=== PATIENT | female | born 1995 | race Two or more races ===

== ENCOUNTER 2019-05-15 05:26 | Inpatient (IN) | payer SELFPAY ==
[~2019-05-15] VITALS: Ht 157.5 cm; Wt 68.0 kg
[~2019-05-15 05:26] MED LIST: OXYTOCIN PREMIX 30 UNIT/500 ML NS BAG. IV ONE
[2019-05-15 05:45] VITALS: BP 123/79
[2019-05-15] MEDS ORDERED: ONDANSETRON PF 4 MG/2 ML VIAL. IV PRN ×2 (06:00→07:15)
[2019-05-15] MEDS ORDERED: IV RINGERS,LACTATED 1000ML 1,000 ML IV SCH ×3 (06:00→14:23)
[2019-05-15] MEDS ORDERED: ACETAMINOPHEN 325 MG TABLET. PO PRN ×2 (06:00→16:30)
[2019-05-15 06:06] LABS: BILIRUBIN,URINE NEGATIVE (NEG); CLARITY,URINE CLEAR; COLOR,URINE YELLOW; NITRITE,URINE NEGATIVE (NEG); PROTEIN,URINE NEGATIVE (NEG-TRACE)
[2019-05-15 06:15] LABS: SQUAMOUS EPITHELIAL CELL,UR MOD /LPF
[2019-05-15 06:16] LABS: BACTERIA,URINE FEW /HPF (0-FEW)
[2019-05-15] MEDS ORDERED: TERBUTALINE 1 MG/ML VIAL. SQ PRN (07:15)
[2019-05-15] MEDS ORDERED: BUTORPHANOL 2 MG/ML VIAL. IV PRN ×2 (07:15)
[2019-05-15] MEDS ORDERED: OXYTOCIN 30 UNIT/500 ML PREMIX 500 ML IV PRN ×2 (07:15→16:30)
[2019-05-15] MEDS ORDERED: 0.9 % SODIUM CHLORIDE 10 ML DISP.SYRIN. IV PRN ×2 (07:15→16:30)
[2019-05-15] MEDS ORDERED: MAG HYDROX/ALUMINUM HYD/SIMETH 30 ML ORAL.SUSP PO PRN ×2 (07:15→16:30)
[2019-05-15] MEDS ORDERED: DOCUSATE SODIUM 283 MG/5 ML ENEMA. PR PRN (07:15)
[2019-05-15] MEDS ORDERED: LIDOCAINE 1% PF 30 ML VIAL. INJ PRN (07:15)
[2019-05-15] MEDS ORDERED: NALBUPHINE 10 MG/ML AMPUL. IV PRN ×3 (07:15→14:30)
[2019-05-15] MEDS ORDERED: fentaNYL PF VIAL 100 MCG/2 ML VIAL IV PRN ×2 (07:15)
[2019-05-15 08:05] LABS: BASO % 0 % (0-3); EOS # 0.1 x10^3/uL (0.0-0.7); EOS % 1 % (0-3); HEMATOCRIT 35.8 % (36.0-47.0); LYMPH # 1.9 x10^3/uL (1.0-4.8); LYMPH % 16 % (24-48); MEAN CORPUSCULAR HEMOGLOBIN 29 pg (25-35); MEAN CORPUSCULAR HGB CONC 34 g/dL (31-37); MEAN CORPUSCULAR VOLUME 86 fL (79-100); MONO # 0.8 x10^3/uL (0.0-1.1); MONO % 7 % (0-9); NEUT # 9.6 x10^3/uL (1.8-7.7); NEUT % 77 % (31-73); PLATELET COUNT 258 x10^3/uL (140-400); RED BLOOD COUNT 4.18 x10^6/uL (3.50-5.40); RED CELL DISTRIBUTION WIDTH 14.4 % (11.5-14.5); WHITE BLOOD COUNT 12.5 x10^3/uL (4.0-11.0)
--- NOTE | 2019-05-15 08:12 | PDOC1 ---
OB - History Hx of Present Care: Good Care Ultrasounds: Normal mid trimester US Obstetrical Complications: None Medical Complications: None Past Family/Social History * Past Medical, Surgical, Family and Obstetric Histories reviewed from chart. Rubella: Immune RPR/VDRL: Negative GBS Status: Negative HBsAG: Negative OB - Chief Complaint & HPI Date of Admission: Date of Admission: May 15, 2019 at 07:35 Chief Complaint/History : 3 Para: 2 EGA: 39 Reason for admission: active labor Admission Nurse Assessment Rev: Yes OB - Admission Exam Physical Exam HEENT: Normal Heart: Regular Rate Lungs: Clear Abdomen: Gravid, Non tender, Soft Extremities: Edema Reflexes: Normal Cervical Dilatation: 3cm Effacement: 75% Station: -3 Membranes: Intact Accelerations: Accelerations Present Decelerations: No decelerations Contractions on Admission: < 5 Minutes Apart Intensity: Moderate Text A: 39 wks IUP Active labor P; Admit for labor management. AUSTEN BRYAN Jr, MD May 15, 2019 08:12
[2019-05-15] MEDS ORDERED: BUPIVACAINE MPF 0.25% 30 ML VIAL. ONE (14:20)
[2019-05-15] MEDS ORDERED: L&D EPIDURAL SYRINGE 50 ML ONE (14:20)
[2019-05-15] MEDS ORDERED: fentaNYL PF VIAL 100 MCG/2 ML VIAL EPID PRN (14:30)
[2019-05-15] MEDS ORDERED: PHENYLEPHRINE in 0.9% NACL PF 1 MG/10 ML SYRINGE. IV PRN (14:30)
[2019-05-15] MEDS ORDERED: ATROPINE 0.5 MG/5 ML DISP.SYRINGE. IV PRN (14:30)
[2019-05-15] MEDS ORDERED: NALOXONE 0.4 MG/ML VIAL. IV PRN (14:30)
[2019-05-15] MEDS ORDERED: IV RINGERS,LACTATED 500ML 500 ML IV PRN (14:30)
[2019-05-15] MEDS ORDERED: PROCHLORPERAZINE 10 MG/2 ML VIAL. IV PRN (14:30)
[2019-05-15] MEDS ORDERED: diphenhydrAMINE 50 MG/ML VIAL IV PRN (14:30)
[2019-05-15] MEDS ORDERED: BUPIVACAINE MPF 0.25% 30 ML VIAL. EPID PRN (14:30)
[2019-05-15] MEDS ORDERED: L&D EPIDURAL SYRINGE 50 ML EPID PRN (14:30)
[2019-05-15] MEDS ORDERED: ePHEDrine PF IN SALINE 50 MG/10 ML SYRINGE. IV PRN (14:30)
[2019-05-15] MEDS ORDERED: ONDANSETRON PF 4 MG/2 ML VIAL. IVP PRN (14:30)
[2019-05-15] MEDS ORDERED: ROPIVacaine 0.2% PF 10 ML VIAL. EPID PRN (14:30)
[2019-05-15] MEDS ORDERED: ONDA4TAB7 PO (14:39)
[2019-05-15] MEDS ORDERED: L&D EPIDURAL 50 ML SYRINGE. ONE (15:00)
--- NOTE | 2019-05-15 16:27 | PDOC ---
VAGINAL DELIVERY DATE DATE: 05/15/19 TIME: 16:25 : 3 Para: 3 EGA: 39 VAGINAL DELIVERY: VTX VACCUM ASSISTED: No PLACENTA: Spontaneous 8/9 SEX: Female WEIGHT Weight [ pending] Nuchal Cord: No Amniotic Fluid: Clear PAIN: Epidural EPISIOTOMY: No EXTENSION: No EBL 300 ml COMPLICATIONS none CONDITION pt. stable Signs of Intrauterine Infectio: None Shoulder Dystocia: No AUSTEN BRYAN Jr, MD May 15, 2019 16:27
[2019-05-15] MEDS ORDERED: ZOLPIDEM 5 MG TABLET. PO PRN (16:30)
[2019-05-15] MEDS ORDERED: HYDROCORTISONE 1% TOPICAL OINTMENT 30GM TUBE. TP PRN (16:30)
[2019-05-15] MEDS ORDERED: IBUPROFEN 400 MG TABLET. PO PRN (16:30)
[2019-05-15] MEDS ORDERED: PHENYLEPH/MINERAL OIL/PETROLAT RECTAL OINTMENT TUBE. RC PRN (16:30)
[2019-05-15] MEDS ORDERED: DOCUSATE SODIUM 100 MG CAPSULE. PO PRN (16:30)
[2019-05-15] MEDS ORDERED: MAGNESIUM HYDROXIDE 2,400 MG/30 ML ORAL.SUSP. PO PRN (16:30)
[2019-05-15] MEDS ORDERED: SIMETHICONE 80 MG TAB.CHEW PO PRN (16:30)
[2019-05-15] MEDS ORDERED: MMR per PROTOCOL. MC PRN (16:30)
[2019-05-15] MEDS ORDERED: diphenhydrAMINE HCL 25 MG CAPSULE PO PRN (16:30)
[2019-05-15] MEDS ORDERED: oxyCODONE/APAP 5/325 1 TAB TABLET PO PRN (16:30)
[2019-05-15] MEDS ORDERED: BENZOCAINE 20% TOPICAL AEROSOL SPRAY 57GM CAN. TP PRN (16:30)
[2019-05-15] MEDS: IBUPROFEN 400 MG TABLET. PO PRN (18:05)
[2019-05-15 20:20] VITALS: BP 126/75
[2019-05-16] VITALS: BP 115/75
[2019-05-16] MEDS: IBUPROFEN 400 MG TABLET. PO PRN ×2 (01:51→09:55)
[2019-05-16 05:22] LABS: BASO % 0 % (0-3); EOS # 0.1 x10^3/uL (0.0-0.7); EOS % 1 % (0-3); HEMATOCRIT 32.6 % (36.0-47.0); HEMOGLOBIN 10.9 g/dL (12.0-15.5); LYMPH # 2.1 x10^3/uL (1.0-4.8); LYMPH % 18 % (24-48); MEAN CORPUSCULAR HEMOGLOBIN 29 pg (25-35); MEAN CORPUSCULAR HGB CONC 34 g/dL (31-37); MEAN CORPUSCULAR VOLUME 85 fL (79-100); MONO % 9 % (0-9); NEUT # 8.2 x10^3/uL (1.8-7.7); NEUT % 72 % (31-73); PLATELET COUNT 218 x10^3/uL (140-400); RED BLOOD COUNT 3.84 x10^6/uL (3.50-5.40); RED CELL DISTRIBUTION WIDTH 14.4 % (11.5-14.5); WHITE BLOOD COUNT 11.3 x10^3/uL (4.0-11.0)
[2019-05-16] MEDS ORDERED: FERROUS SULFATE 325 MG TABLET. PO SCH (08:00)
--- NOTE | 2019-05-16 08:16 | PDOC ---
OB Progress Note Date of Service 05/16/19 Time of Evaluation 0815 Notes Pt. feeling well. No complaints. Lab Laboratory Tests Test 05/15/19 06:00 05/15/19 07:25 05/16/19 05:10 Urine Collection Type Unknown Urine Color Yellow Urine Clarity Clear Urine pH 7.0 Urine Specific [place] 1.015 Urine Protein Negative mg/dL (NEG-TRACE) Urine Glucose (UA) Negative mg/dL (NEG) Urine Ketones (Stick) 40 mg/dL (NEG) Urine Blood Small (NEG) Urine Nitrite Negative (NEG) Urine Bilirubin Negative (NEG) Urine Urobilinogen Dipstick 1.0 mg/dL (0.2 mg/dL) Urine Leukocyte Esterase Trace (NEG) Urine RBC 6-10 /HPF (0-2) Urine WBC 1-4 /HPF (0-4) Urine Squamous Epithelial Cells Mod /LPF Urine Bacteria Few /HPF (0-FEW) Urine Mucus Mod /LPF White Blood Count 12.5 x10^3/uL (4.0-11.0) 11.3 x10^3/uL (4.0-11.0) Red Blood Count 4.18 x10^6/uL (3.50-5.40) 3.84 x10^6/uL (3.50-5.40) Hemoglobin 12.0 g/dL (12.0-15.5) 10.9 g/dL (12.0-15.5) Hematocrit 35.8 % (36.0-47.0) 32.6 % (36.0-47.0) Mean Corpuscular Volume 86 fL (79-100) 85 fL (79-100) Mean Corpuscular Hemoglobin 29 pg (25-35) 29 pg (25-35) Mean Corpuscular Hemoglobin Concent 34 g/dL (31-37) 34 g/dL (31-37) Red Cell Distribution Width 14.4 % (11.5-14.5) 14.4 % (11.5-14.5) Platelet Count 258 x10^3/uL (140-400) 218 x10^3/uL (140-400) Neutrophils (%) (Auto) 77 % (31-73) 72 % (31-73) Lymphocytes (%) (Auto) 16 % (24-48) 18 % (24-48) Monocytes (%) (Auto) 7 % (0-9) 9 % (0-9) Eosinophils (%) (Auto) 1 % (0-3) 1 % (0-3) Basophils (%) (Auto) 0 % (0-3) 0 % (0-3) Neutrophils # (Auto) 9.6 x10^3/uL (1.8-7.7) 8.2 x10^3/uL (1.8-7.7) Lymphocytes # (Auto) 1.9 x10^3/uL (1.0-4.8) 2.1 x10^3/uL (1.0-4.8) Monocytes # (Auto) 0.8 x10^3/uL (0.0-1.1) 1.0 x10^3/uL (0.0-1.1) Eosinophils # (Auto) 0.1 x10^3/uL (0.0-0.7) 0.1 x10^3/uL (0.0-0.7) Basophils # (Auto) 0.0 x10^3/uL (0.0-0.2) 0.0 x10^3/uL (0.0-0.2) Treponema pallidum Antibody Nonreactive (Nonreactive) Laboratory Tests Test 05/16/19 05:10 White Blood Count 11.3 x10^3/uL (4.0-11.0) Red Blood Count 3.84 x10^6/uL (3.50-5.40) Hemoglobin 10.9 g/dL (12.0-15.5) Hematocrit 32.6 % (36.0-47.0) Mean Corpuscular Volume 85 fL (79-100) Mean Corpuscular Hemoglobin 29 pg (25-35) Mean Corpuscular Hemoglobin Concent 34 g/dL (31-37) Red Cell Distribution Width 14.4 % (11.5-14.5) Platelet Count 218 x10^3/uL (140-400) Neutrophils (%) (Auto) 72 % (31-73) Lymphocytes (%) (Auto) 18 % (24-48) Monocytes (%) (Auto) 9 % (0-9) Eosinophils (%) (Auto) 1 % (0-3) Basophils (%) (Auto) 0 % (0-3) Neutrophils # (Auto) 8.2 x10^3/uL (1.8-7.7) Lymphocytes # (Auto) 2.1 x10^3/uL (1.0-4.8) Monocytes # (Auto) 1.0 x10^3/uL (0.0-1.1) Eosinophils # (Auto) 0.1 x10^3/uL (0.0-0.7) Basophils # (Auto) 0.0 x10^3/uL (0.0-0.2) Medications Current Medications Ringer's Solution 1,000 ml @ 125 mls/hr Q8H IV Last administered on 05/15/19at 08:35; Start 05/15/19 at 06:00 Acetaminophen (Tylenol) 650 mg PRN Q6HRS PRN PO PAIN, TEMP > 100.5'F; Start 05/15/19 at 06:00; Stop 05/15/19 at 16:32; Status DC Ondansetron HCl (Zofran) 4 mg PRN Q6HRS PRN IV NAUSEA Last administered on 05/15/19at 08:35; Start 05/15/19 at 06:00 Sodium Chloride (Normal Saline Flush) 3 ml QSHIFT PRN IV AFTER MEDS AND BLOOD DRAWS; Start 05/15/19 at 07:15 Ringer's Solution 1,000 ml @ 125 mls/hr Q8H IV Last administered on 05/15/19at 14:16; Start 05/15/19 at 07:11 Nalbuphine HCl (Nubain) 5 mg PRN Q1HR PRN IV Mild to moderate labor pain; Start 05/15/19 at 07:15 Nalbuphine HCl (Nubain) 10 mg PRN Q1HR PRN IV Severe labor pain; Start 05/15/19 at 07:15 Butorphanol Tartrate (Stadol) 1 mg PRN Q1HR PRN IV mild to moderate labor pain Last administered on 05/15/19at 14:02; Start 05/15/19 at 07:15 Butorphanol Tartrate (Stadol) 2 mg PRN Q1HR PRN IV Severe labor pain; Start 05/15/19 at 07:15 Fentanyl Citrate (Fentanyl 2ml Vial) 50 mcg PRN Q30MIN PRN IV Mild to moderate pain; Start 05/15/19 at 07:15 Fentanyl Citrate (Fentanyl 2ml Vial) 100 mcg PRN Q30MIN PRN IV Severe pain; Start 05/15/19 at 07:15 Ondansetron HCl (Zofran) 4 mg PRN Q4HRS PRN IV NAUSEA/VOMITING; Start 05/15/19 at 07:15 Al Hydroxide/Mg Hydroxide (Mylanta Plus Xs) 30 ml PRN Q4HRS PRN PO HEARTBURN / GAS; Start 05/15/19 at 07:15; Stop 05/15/19 at 16:32; Status DC Terbutaline Sulfate (Brethine) 0.25 mg 1X PRN PRN SQ SEE COMMENTS; Start 05/15/19 at 07:15; Stop 05/16/19 at 07:14; Status DC Lidocaine HCl (Xylocaine 1% Pf 30ml Vial) 30 ml 1X PRN PRN INJ SEE COMMENTS; Start 05/15/19 at 07:15; Stop 05/17/19 at 07:14 Oxytocin/Sodium Chloride 500 ml @ 0 mls/hr CONT PRN PRN IV Post delivery bleeding Last administered on 05/15/19at 12:06; Start 05/15/19 at 07:15 Ibuprofen (Motrin) 800 mg PRN Q6HRS PRN PO MILD TO MODERATE PAIN Last administered on 05/16/19at 01:51; Start 05/15/19 at 07:15 Docusate Sodium (Enemeez) 283 mg PRN DAILY PRN SC CONSTIPATION; Start 05/15/19 at 07:15 Oxytocin/Sodium Chloride (Oxytocin Premix Infusion) 30 unit STK-MED ONCE IV ; Start 05/15/19 at 05:00; Stop 05/15/19 at 12:34; Status DC Bupivacaine HCl (Sensorcaine Mpf 0.25%) 30 ml STK-MED ONCE .ROUTE ; Start 05/15/19 at 14:20; Stop 05/15/19 at 14:20; Status DC Fentanyl Citrate 50 ml @ As Directed STK-MED ONCE .ROUTE ; Start 05/15/19 at 14:20; Stop 05/15/19 at 14:20; Status DC Ringer's Solution 1,000 ml @ 1,000 mls/hr Q1H IV ; Start 05/15/19 at 14:23; Stop 05/15/19 at 15:22; Status DC Ringer's Solution 500 ml @ 500 mls/hr 1X PRN PRN IV HYPOTENSION; Start 05/15/19 at 14:30; Stop 05/16/19 at 14:29 Ephedrine Sulfate (ePHEDrine PF IN SALINE SYRINGE) 10 mg PRN Q2MIN PRN IV IF SBP<90; Start 05/15/19 at 14:30 Phenylephrine HCl (PHENYLEPHRINE in 0.9% NACL PF) 0.05 mg PRN Q2MIN PRN IV SBP less than 90; Start 05/15/19 at 14:30 Atropine Sulfate (ATROPINE 0.5mg SYRINGE) 0.4 mg PRN Q2MIN PRN IV FOR SYMPTOMATIC BRADYCARDIA; Start 05/15/19 at 14:30 Naloxone HCl (Narcan) 0.04 mg PRN Q1MIN PRN IV SEE COMMENTS; Start 05/15/19 at 14:30 Fentanyl Citrate (Fentanyl 2ml Vial) 100 mcg PRN 1X PRN EPID FOR ANESTHESIA; Start 05/15/19 at 14:30; Stop 05/16/19 at 14:29 Bupivacaine HCl (Sensorcaine Mpf 0.25%) 10 ml PRN 1X PRN EPID FOR ANESTHESIA; Start 05/15/19 at 14:30; Stop 05/16/19 at 14:29 Fentanyl Citrate 50 ml @ 14 mls/hr CONT PRN EPID PAIN; Start 05/15/19 at 14:30 Ondansetron HCl (Zofran) 4 mg PRN Q6HRS PRN IVP NAUSEA/VOMITING; Start 05/15/19 at 14:30 Prochlorperazine Edisylate (Compazine) 5 mg PRN Q6HRS PRN IV NAUSEA/VOMITING; Start 05/15/19 at 14:30 Diphenhydramine HCl (Benadryl) 12.5 mg PRN Q2HR PRN IV ITCHING; Start 05/15/19 at 14:30 Nalbuphine HCl (Nubain) 2.5 mg PRN Q2HR PRN IV ITCHING; Start 05/15/19 at 14:30 Ropivacaine (Naropin 0.2%) 20 ml 1X PRN PRN EPID PER ANESTHESIA; Start 05/15/19 at 14:30 Sodium Chloride (Normal Saline Flush) 10 ml QSHIFT PRN IV AFTER MEDS AND BLOOD DRAWS; Start 05/15/19 at 16:30 Oxytocin/Sodium Chloride 500 ml @ 62.5 mls/hr CONT PRN IV SEE I/O RECORD; Start 05/15/19 at 16:30; Stop 05/16/19 at 00:29; Status DC Acetaminophen (Tylenol) 650 mg PRN Q6HRS PRN PO MILD PAIN / TEMP; Start 05/15/19 at 16:30 Ibuprofen (Motrin) 800 mg PRN Q8HRS PRN PO INFLAMMATION/PAIN PREVENTION; Start 05/15/19 at 16:30 Docusate Sodium (Colace) 100 mg PRN BID PRN PO HARD STOOLS; Start 05/15/19 at 16:30 Magnesium Hydroxide (Milk Of Magnesia) 2,400 mg PRN DAILY PRN PO CONSTIPATION; Start 05/15/19 at 16:30 Al Hydroxide/Mg Hydroxide (Mylanta Plus Xs) 30 ml PRN Q4HRS PRN PO HEARTBURN / GAS; Start 05/15/19 at 16:30 Simethicone (Gas-X) 80 mg PRN AFTMEALHC PRN PO GAS / BLOATING; Start 05/15/19 at 16:30 Diphenhydramine HCl (Benadryl) 25 mg PRN Q6HRS PRN PO ITCHING; Start 05/15/19 at 16:30 Benzocaine (Americaine) 1 spray PRN QID PRN TP TOPICAL PAIN; Start 05/15/19 at 16:30 Phenyleph/Shark Oil/Min Oil/Petrol (Preparation H) 1 zahira PRN QID PRN RC RECTAL PAIN; Start 05/15/19 at 16:30 Hydrocortisone (Cortaid) 1 zahira PRN QID PRN TP PERINEAL PAIN; Start 05/15/19 at 16:30 Ferrous Sulfate (Feosol) 325 mg BIDWMEALS PO ; Start 05/16/19 at 08:00 Zolpidem Tartrate (Ambien) 5 mg PRN QHS PRN PO INSOMNIA, MAY REPEAT X1; Start 05/15/19 at 16:30 Info (Do NOT chart on this placeholder) 1 ea 1X PRN PRN MC SEE COMMENTS; Start 05/15/19 at 16:30 Info (Do NOT chart on this placeholder) 1 ea 1X PRN PRN MC SEE COMMENTS; Start 05/15/19 at 16:30 Oxycodone/ Acetaminophen (Percocet 5/325) 2 tab PRN Q4HRS PRN PO MODERATE PAIN, SEVERE PAIN; Start 05/15/19 at 16:30 Active Scripts Active Reported Zofran (Ondansetron Hcl) 4 Mg Tablet 4 Mg PO BID PRN Exam Abd: soft, non tender, fundus firm Assessment PPD#1 s/p Plan of Care: Continue current Tx, Mgmt AUSTEN BRYAN Jr, MD May 16, 2019 08:16
[2019-05-16 11:20] VITALS: BP 117/71
[2019-05-16 15:20] VITALS: BP 120/70
[2019-05-16] MEDS ORDERED: ONDANSETRON ODT 4 MG TAB.RAPDIS. PO PRN (20:15)
[2019-05-16 23:13] VITALS: BP 132/70
[2019-05-17 06:10] VITALS: BP 108/72
[2019-05-17 10:36] VITALS: BP 108/74
--- NOTE | 2019-05-17 16:12 | PDOC3 ---
OB DISCHARGE SUMMARY DATE OF ADMISSION: 05/15/19 DATE OF DISCHARGE: 05/17/19 REASON FOR ADMISSION: Onset of labor INTRAPARTUM PROCEDURES: Spontanous Vag Deliv DISCHARGE DIAGNOSIS: Term Delivered DISCHARGE INFORMATION: Activity (ad yung), Diet (regular), Instructions (pelvic rest x 6 wks) HOSPITAL COURSE Term gestation delivered vaginally without complications. AUSTEN BRYAN Jr, MD May 17, 2019 16:12
[2019-05-17] MEDS ORDERED: IBUP-1027 PO (16:14)
--- NOTE | 2019-05-17 16:14 | DISCH ---
DISCHARGE INSTRUCTIONS Condition on Discharge Condition on Discharge: Stable Activity After Discharge Activity Instructions for Disc: Activity as tolerated Lifting Instructions after Dis: No heavy lifting Driving Instructions after Dis: Do not drive today Diet after Discharge Diet after Discharge: Regular Contacting the [facility] after DC Call your doctor for: Concerns you may have Follow-Up Follow up with: Alessandra in 6 wks AUSTEN BRYAN Jr, MD May 17, 2019 16:14
--- NOTE | 2019-05-17 16:48 | NUR ---
Discharge Discharge instructions given to patient and family at this time, no questions or concerns noted. Waiting for baby to be discharged, will continue to monitor.
== END 2019-05-17 17:30 | disposition home or self-care (01) | DRG 807 ==
LOC: 3 SO LND 05:26 → OBSVTOIN 07:35 → 3 NORTH 20:37
PROVIDERS: ADMIT Obstetrics & Gynecology; ATTEND Obstetrics & Gynecology
PROC: 10E0XZZ Delivery of Products of Conception, External Approach (ICD-10-PCS; principal; 2019-05-15)
PROC: 3E0R3BZ Introduction of Anesthetic Agent into Spinal Canal, Percutaneous Approach (ICD-10-PCS; 2019-05-15)
PROC: 00HU33Z Insertion of Infusion Device into Spinal Canal, Percutaneous Approach (ICD-10-PCS; 2019-05-15)
DX: O80 Encounter for full-term uncomplicated delivery (principal); Z37.0 Single live birth; Z3A.39 39 weeks gestation of pregnancy
CPT/HCPCS: 36415; 81001; 85025; 86592; 86850; 86900; 86901; 87086; G0378; G0379; J2405; J2590; J7120; Q0162

== ENCOUNTER 2020-09-26 13:34 | Emergency (ER) | payer SELFPAY ==
[~2020-09-26] VITALS: Ht 170.2 cm; Wt 55.0 kg
[~2020-09-26 13:34] MED LIST changes: +IBUP-1027 PO; +ONDA4TAB7 PO; -OXYTOCIN PREMIX 30 UNIT/500 ML NS BAG. IV ONE
[2020-09-26] MEDS ORDERED: ONDANSETRON PF 4 MG/2 ML VIAL. IVP ONE (15:45)
[2020-09-26] MEDS ORDERED: IV NORMAL SALINE 1000ML BAG 1,000 ML IV ONE (15:45)
[2020-09-26] MEDS ORDERED: IV NORMAL SALINE 1000ML BAG 1,000 ML IV SCH (15:45)
[2020-09-26] MEDS ORDERED: MORPHINE SULFATE 4 MG/ML VIAL. IV ONE (15:45)
[2020-09-26 15:48] LABS: BASO % 0 % (0-3); EOS % 0 % (0-3); HEMATOCRIT 42.6 % (36.0-47.0); HEMOGLOBIN 14.7 g/dL (12.0-15.5); LYMPH # 0.8 x10^3/uL (1.0-4.8); LYMPH % 5 % (24-48); MEAN CORPUSCULAR HEMOGLOBIN 32 pg (25-35); MEAN CORPUSCULAR HGB CONC 34 g/dL (31-37); MEAN CORPUSCULAR VOLUME 93 fL (79-100); MONO # 0.6 x10^3/uL (0.0-1.1); MONO % 4 % (0-9); NEUT # 14.3 x10^3/uL (1.8-7.7); NEUT % 91 % (31-73); PLATELET COUNT 334 x10^3/uL (140-400); RED BLOOD COUNT 4.57 x10^6/uL (3.50-5.40); RED CELL DISTRIBUTION WIDTH 13.1 % (11.5-14.5); WHITE BLOOD COUNT 15.7 x10^3/uL (4.0-11.0)
[2020-09-26 15:51] LABS: CLARITY,URINE TURBID
[2020-09-26 15:55] LABS: CALCIUM 9.4 mg/dL (8.5-10.1); CREATININE 0.9 mg/dL (0.6-1.0); GFR 75.1; POTASSIUM 3.6 mmol/L (3.5-5.1)
[2020-09-26 15:58] LABS: BACTERIA,URINE MANY /HPF (0-FEW); COLOR,URINE RED; RBC,URINE TNTC /HPF (0-2)
[2020-09-26] MEDS ORDERED: cefTRIAXone IV Push 1 GM VIAL. IVP ONE (16:00)
[2020-09-26] MEDS ORDERED: KETOROLAC 15 MG/ML VIAL. IVP ONE ×2 (16:00→17:30)
[2020-09-26 16:01] LABS: ALBUMIN 4.4 g/dL (3.4-5.0); ALBUMIN/GLOBULIN RATIO 1.3 (1.0-1.7); TOTAL BILIRUBIN 0.8 mg/dL (0.2-1.0); TOTAL PROTEIN 7.8 g/dL (6.4-8.2)
[2020-09-26 16:02] LABS: WBC,URINE RARE /HPF (0-4)
[2020-09-26 16:22] LABS: % BANDS 3 % (0-9); % LYMPHS 9 % (24-48); % MONOS 3 % (0-10); % SEGS 85 % (35-66); PLT ESTIMATE ADEQUATE (ADEQUATE)
--- NOTE | 2020-09-26 17:08 | RAD ---
Exam: CT of abdomen and pelvis without contrast INDICATION: Left flank pain TECHNIQUE: Sequential axial images through the abdomen and pelvis obtained without IV contrast. Sagit jase and coronal reformatted images were reconstructed from the axial data and reviewed. Comparisons: None FINDINGS: Heart size is normal. No pericardial effusion. Visualized lung bases are clear. No pleural effusion. Evaluation of solid organs is limited secondary to noncontrast technique. Liver, spleen, pancreas, gallbladder and adrenals are unremarkable. There is moderate left-sided hydronephrosis and a 8 mm calculus at the proximal left ureter. No renal calculi are identified. Bladder is partially distended and appears thin-walled. Uterus is not enlarged. IUD noted within the uterus. No abnormal adnexal mass. Large and small bowel are unremarkable. Appendix is normal. No free intra-abdominal air or fluid. No enlarged intra-abdominal lymph nodes are identified. Abdominal aorta has a normal course and caliber. No enlarged intra-abdominal lymph nodes are identified. No suspicious osseous lesions or acute fractures. IMPRESSION: There is a 8 mm calculus at the proximal left ureter with moderate left-sided hydronephrosis and hydr oureter. Exposure: One or more of the following in the visualized dose reduction techniques were utilized for this examination: 1. Automated exposure control 2. Adjustment of the MA and/or KV according to patient size 3. Use of iterative of reconstructive technique Electronically signed by: Dilan Brewer MD (09/26/2020 5:06 PM) [facility]
--- NOTE | 2020-09-26 17:25 | PHYS DOC ---
Past Medical History Past Medical History: Other (COVID-19 infection) (TIMOTHY SULLIVAN DO) Alcohol Use: None Drug Use: None (TIMOTHY SULLIVAN DO) General Adult EDM: Chief Complaint: FLANK PAIN HPI: HPI: Patient is a 25 year old female who presented to ER due to left flank pain started today. Patient said about a week ago she started noticing blood in her urine, she continued to have some blood in her urine, have some flank pain very mild pain. But this morning when she woke up she had severe left flank pain that radiates into her left groin area. Patient also was urinating blood. Patient had nausea and vomiting with it. Any fever, no cough, no chest pain. Patient denies any vaginal bleeding or discharge. Patient says she is not . Patient says she had COVID-19 infection last November. Patient says she had not had Covid vaccine yet. Patient denies ever been feeling this way before (TIMOTHY SULLIVAN DO) Review of Systems: Review of Systems: Constitutional: Denies fever or chills. [] Eyes: Denies change in visual acuity. [] HENT: Denies nasal congestion or sore throat. [] Respiratory: Denies cough or shortness of breath. [] Cardiovascular: Denies chest pain or edema. [] GI: Positive for left flank pain with nausea vomiting, no diarrhea] : Denies dysuria. [] Musculoskeletal: Denies back pain or joint pain. [] Integument: Denies rash. [] Neurologic: Denies headache, focal weakness or sensory changes. [] Endocrine: Denies polyuria or polydipsia. [] Lymphatic: Denies swollen glands. [] Psychiatric: Denies depression or anxiety. [] (TIMOTHY SULLIVAN DO) Heart Score: C/O Chest Pain: N/A Risk Factors: Risk Factors: DM, Current or recent (<one month) smoker, HTN, HLP, family history of CAD, obesity. Risk Scores: Score 0 - 3: 2.5% MACE over next 6 weeks - Discharge Home Score 4 - 6: 20.3% MACE over next 6 weeks - Admit for Clinical Observation Score 7 - 10: 72.7% MACE over next 6 weeks - Early Invasive Strategies (TIMOTHY SULLIVAN DO) Current Medications: Current Medications Medications (Trade) Dose Ordered Sig/Wally Start Time Stop Time Status Last Admin Dose Admin Ceftriaxone Sodium (Rocephin) 1 gm 1X ONCE 09/26/20 16:00 09/26/20 16:02 DC Ketorolac Tromethamine (Toradol 15mg Vial) 15 mg 1X ONCE 09/26/20 17:30 09/26/20 17:31 Morphine Sulfate (Morphine Sulfate) 4 mg 1X ONCE 09/26/20 15:45 09/26/20 15:46 DC 09/26/20 15:54 4 MG Ondansetron HCl (Zofran) 4 mg 1X ONCE 09/26/20 15:45 09/26/20 15:46 DC 09/26/20 15:55 4 MG Sodium Chloride 1,000 ml @ 1,000 mls/hr 1X ONCE 09/26/20 15:45 09/26/20 16:44 DC Tamsulosin HCl (Flomax) 0.4 mg 1X ONCE 09/26/20 17:30 09/26/20 17:31 (TIMOTHY SULLIVAN DO) Allergies: Allergies: Allergies Coded Allergies Type Severity Reaction Last Updated Verified No Known Drug Allergies 07/20/15 No (TIMOTHY SULLIVAN DO) Physical Exam: PE: Constitutional: Well developed, well nourished, in moderate acute distress due to pain. HENT: Normocephalic, atraumatic, bilateral external ears normal, oropharynx moist, no oral exudates, nose normal. [] Eyes: PERRLA, EOMI, conjunctiva normal, no discharge. [] Neck: Normal range of motion, no tenderness, supple, no stridor. [] Cardiovascular:Heart rate regular rhythm, no murmur [] Lungs & Thorax: Bilateral breath sounds clear to auscultation [] Abdomen: Bowel sounds normal, soft, left CVA tenderness to palpation, left side abdominal tenderness to palpation. No masses, no pulsatile masses. [] Skin: Warm, dry, no erythema, no rash. [] Back: No tenderness, left CVA tenderness. Extremities: No tenderness, no cyanosis, no clubbing, ROM intact, no edema. [] Neurologic: Alert and oriented X 3, normal motor function, normal sensory function, no focal deficits noted. [] Psychologic: Affect normal, judgement normal, mood normal. [] (TIMOTHY SULLIVAN DO) Current Patient Data: Labs: Laboratory Tests Test 4/17/21 15:39 09/26/20 15:43 09/26/20 15:45 White Blood Count 15.7 x10^3/uL (4.0-11.0) H Red Blood Count 4.57 x10^6/uL (3.50-5.40) Hemoglobin 14.7 g/dL (12.0-15.5) Hematocrit 42.6 % (36.0-47.0) Mean Corpuscular Volume 93 fL (79-100) Mean Corpuscular Hemoglobin 32 pg (25-35) Mean Corpuscular Hemoglobin Concent 34 g/dL (31-37) Red Cell Distribution Width 13.1 % (11.5-14.5) Platelet Count 334 x10^3/uL (140-400) Neutrophils (%) (Auto) 91 % (31-73) H Lymphocytes (%) (Auto) 5 % (24-48) L Monocytes (%) (Auto) 4 % (0-9) Eosinophils (%) (Auto) 0 % (0-3) Basophils (%) (Auto) 0 % (0-3) Neutrophils # (Auto) 14.3 x10^3/uL (1.8-7.7) H Lymphocytes # (Auto) 0.8 x10^3/uL (1.0-4.8) L Monocytes # (Auto) 0.6 x10^3/uL (0.0-1.1) Eosinophils # (Auto) 0.0 x10^3/uL (0.0-0.7) Basophils # (Auto) 0.0 x10^3/uL (0.0-0.2) Segmented Neutrophils % 85 % (35-66) H Band Neutrophils % 3 % (0-9) Lymphocytes % 9 % (24-48) L Monocytes % 3 % (0-10) Platelet Estimate Adequate (ADEQUATE) Sodium Level 142 mmol/L (136-145) Potassium Level 3.6 mmol/L (3.5-5.1) Chloride Level 107 mmol/L (98-107) Carbon Dioxide Level 27 mmol/L (21-32) Anion Gap 8 (6-14) Blood Urea Nitrogen 14 mg/dL (7-20) Creatinine 0.9 mg/dL (0.6-1.0) Estimated GFR (Cockcroft-Gault) 75.1 BUN/Creatinine Ratio 16 (6-20) Glucose Level 121 mg/dL (70-99) H Calcium Level 9.4 mg/dL (8.5-10.1) Total Bilirubin 0.8 mg/dL (0.2-1.0) Aspartate Amino Transferase (AST) 16 U/L (15-37) Alanine Aminotransferase (ALT) 17 U/L (14-59) Alkaline Phosphatase 73 U/L (46-116) Total Protein 7.8 g/dL (6.4-8.2) Albumin 4.4 g/dL (3.4-5.0) Albumin/Globulin Ratio 1.3 (1.0-1.7) Lipase 63 U/L (73-393) L POC Urine HCG, Qualitative Hcg negative (Negative) Urine Collection Type Unknown Urine Color Red Urine Clarity Turbid Urine pH (<5.0-8.0) Urine Specific [place] (1.000-1.030) Urine Protein mg/dL (NEG-TRACE) Urine Glucose (UA) mg/dL (NEG) Urine Ketones (Stick) mg/dL (NEG) Urine Blood (NEG) Urine Nitrite (NEG) Urine Bilirubin (NEG) Urine Urobilinogen Dipstick mg/dL (0.2 mg/dL) Urine Leukocyte Esterase (NEG) Urine RBC Tntc /HPF (0-2) Urine WBC Rare /HPF (0-4) Urine Squamous Epithelial Cells Many /LPF Urine Bacteria Many /HPF (0-FEW) Laboratory Tests 09/26/20 15:39 Laboratory Tests 09/26/20 15:39 Vital Signs: Vital Signs Date Time Temp Pulse Resp B/P (MAP) Pulse Ox O2 Delivery O2 Flow Rate FiO2 09/26/20 15:54 18 100 Room Air 09/26/20 15:30 58 147/77 (100) (TIMOTHY SULLIVAN DO) EKG: EKG: [] (TIMOTHY SULLIVAN DO) Radiology/Procedures: Radiology/Procedures: [][facility] [address] [place] [address] IMAGING REPORT Signed PATIENT: SHANTANU LOPEZ ACCOUNT: [id number] : 1995 LOCATION: ER AGE: 25 SEX: F EXAM STATUS: REG ER ORD. PHYSICIAN: TIMOTHY SULLIVAN DO REASON: LEFT FLANK PAIN PROCEDURE: CT ABDOMEN PELVIS WO CONTRAST Exam: CT of abdomen and pelvis without contrast INDICATION: Left flank pain TECHNIQUE: Sequential axial images through the abdomen and pelvis obtained without IV contrast. Sagittal and coronal reformatted images were reconstructed from the axial data and reviewed. Comparisons: None FINDINGS: Heart size is normal. No pericardial effusion. Visualized lung bases are clear. No pleural effusion. Evaluation of solid organs is limited secondary to noncontrast technique. Liver, spleen, pancreas, gallbladder and adrenals are unremarkable. There is moderate left-sided hydronephrosis and a 8 mm calculus at the proximal left ureter. No renal calculi are identified. Bladder is partially distended and appears thin-walled. Uterus is not enlarged. IUD noted within the uterus. No abnormal adnexal mass. Large and small bowel are unremarkable. Appendix is normal. No free intra- abdominal air or fluid. No enlarged intra-abdominal lymph nodes are identified. Abdominal aorta has a normal course and caliber. No enlarged intra-abdominal lymph nodes are identified. No suspicious osseous lesions or acute fractures. IMPRESSION: There is a 8 mm calculus at the proximal left ureter with moderate left-sided hydronephrosis and hydroureter. Exposure: One or more of the following in the visualized dose reduction techniques were utilized for this examination: 1. Automated exposure control 2. Adjustment of the MA and/or KV according to patient size 3. Use of iterative of reconstructive technique Electronically signed by: Dilan Pimentel MD (09/26/2020 5:06 PM) [facility] DICTATED and SIGNED BY: DILAN PIMENTEL MD DATE: 09/26/20 [id number] (TIMOTHY SULLIVAN DO) Course & Med Decision Making: Course & Med Decision Making Pertinent Labs and Imaging studies reviewed. (See chart for details) Patient is a 25-year-old female who presented to ER due to left flank pain started today. CT scan of her abdomen pelvic show she had a 8 mm left proximal stone with hydroureter and hydronephrosis. Patient was given IV pain medication in the ER but she continued to have pain therefore she will need to be admitted for pain control. There is no urology service at this hospital at this time, patient will need to be transferred to another hospital where there is urology service available. Patient requested to be transferred to . This physician called transfer line at 5:30 PM, discussed with Tj, awaiting for accepting doctor over there. Patient care was endorsed to incoming physician at shift change, 6 PM, Dr. Tay Terry awaiting for transfer to another hospital (TIMOTHY SULLIVAN DO) Course & Med Decision Making Pt care accepted by DR. Zaire Birmingham at [facility]. Pt currently stable for transfer (TAY TERRY MD) Dragon Disclaimer: Dragon Disclaimer: This electronic medical record was generated, in whole or in part, using a voice recognition dictation system. (TIMOTHY SULLIVAN DO) Departure Departure Impression: Primary Impression: Left ureteral calculus Disposition: 02 SHORT TERM HOSPITAL Condition: IMPROVED Referrals: NO PCP (PCP) TIMOTHY SULLIVAN DO Sep 26, 2020 17:25 TAY TERRY MD Sep 26, 2020 19:30
[2020-09-26] MEDS ORDERED: TAMSULOSIN 0.4 MG CAP.ER.24H. PO ONE (17:30)
[2020-09-26] MEDS ORDERED: fentaNYL PF VIAL 100 MCG/2 ML VIAL IVP ONE (17:30)
[2020-09-26 20:44] VITALS: BP 120/75
== END 2020-09-26 20:45 | disposition short-term general hospital (02) ==
LOC: ER 13:34
DX: N13.2 Hydronephrosis with renal and ureteral calculous obstruction (principal); R11.2 Nausea with vomiting, unspecified; R31.9 Hematuria, unspecified; R10.9 Unspecified abdominal pain
CPT/HCPCS: 36415; 74176; 80053; 81001; 81025; 83690; 85007; 85025; 87086; 96361; 96374; 96375; 99285; J0696; J1885; J2270; J2405; J3010; J7030